=== PATIENT | female | born 1995 | race African-American/Black ===

== ENCOUNTER 2016-10-15 22:20 | Emergency (ER) | payer OTHER ==
[~2016-10-15] VITALS: Ht 167.6 cm; Wt 82.7 kg
[~2016-10-15 22:20] MED LIST: PNV91TAB3 PO
[2016-10-15] MEDS ORDERED: KETOROLAC TROMETHAMINE 60 MG/2 ML VIAL IM ONE (23:15)
[2016-10-16 01:39] VITALS: BP 125/81
== END 2016-10-16 02:14 | disposition home or self-care (01) ==
LOC: EMS 22:21
DX: S13.4XXA Sprain of ligaments of cervical spine, initial encounter (principal); S40.011A Contusion of right shoulder, initial encounter; S40.012A Contusion of left shoulder, initial encounter; F12.90 Cannabis use, unspecified, uncomplicated; Z91.013 Allergy to seafood; V49.50XA Passenger injured in collision with unspecified motor vehicles in traffic accident, initial encounter; Y93.89 Activity, other specified; Y92.89 Other specified places as the place of occurrence of the external cause; Y99.8 Other external cause status
CPT/HCPCS: 72040; 73030; 96372; 99284; J1885